=== PATIENT | male | born 1955 | race Caucasian/White ===

== ENCOUNTER 2017-12-30 18:48 | Emergency (ER) | payer OTHER ==
[~2017-12-30] VITALS: Ht 180.3 cm; Wt 85.7 kg
[~2017-12-30 18:48] MED LIST: FLUT9.9S NS; GUAI120L35 PO; HYDR-971 PO; IBUP800T19 PO
[2017-12-30 19:20] VITALS: BP 62/81
[2017-12-30] MEDS ORDERED: CEPH-264 PO (19:34)
--- NOTE | 2017-12-30 23:11 | ED.ADGEN ---
Past History Past Medical History: No Pertinent History Past Surgical History: No Surgical History Alcohol Use: None Drug Use: None Adult General HPI HPI Patient is a 62 year old male who presents with possible spider bite. Patient states he was cleaning out a shed one week earlier. Following this, he noticed a very small red pustule on the forearm on the left on the volar surface. Since then, he has had worsening irritation at the site. Over the last 24-48 hours she developed some erythema extending circumferentially from the site. He also states there was some drainage at the location. He has otherwise felt at baseline health. He has had no fever or chills. He has been using antifungal cream on the area but this has not been improving the symptoms Review of Systems Review of Systems Constitutional: Denies fever or chills Eyes: Denies change in visual acuity HENT: Denies nasal congestion GI: Denies abdominal pain, nausea, vomiting Musculoskeletal: Denies back pain or joint pain Integument: Denies rash or skin lesions Neurologic: Denies headache All other systems were reviewed and found to be within normal limits, except as documented in this note. Allergies Allergies Allergies Coded Allergies Type Severity Reaction Last Updated Verified Penicillins Allergy Intermediate rash 08/26/16 Yes Physical Exam Physical Exam Constitutional: Well developed, well nourished, no acute distress, non-toxic appearance. HENT: Normocephalic, atraumatic, bilateral external ears normal, oropharynx moist Eyes: EOMI, conjunctiva normal, no discharge. Skin: Warm, dry, no erythema, no rash. Extremities: There is about a 3 cm area of erythema over the volar surface of the mid left forearm. The area has erythematous raised borders with some central clearing and a Center pustule. There is no fluctuant abscess palpable. There is no local fever. Neurologic: Alert and oriented X 3, normal motor function, normal sensory function, no focal deficits noted. [] Psychologic: Affect normal, judgement normal, mood normal. [] Current Patient Data Vital Signs Vital Signs Date Time Temp Pulse Resp B/P (MAP) Pulse Ox O2 Delivery O2 Flow Rate FiO2 12/30/17 19:28 20 Room Air 12/30/17 19:20 97.7 57 97 EKG EKG [] Radiology/Procedures Radiology/Procedures [] Course & Med Decision Making Course & Med Decision Making Pertinent Labs and Imaging studies reviewed. (See chart for details) Patient is seen and examined in the emergency department for possible spider bite. The lesion on his forearm seems more consistent with tinea although it could also represent a healing brown recluse spider bite given it has an area of central clearing. There is erythema circumferentially around the lesion. The patient states the erythema is new. Because of this, he is placed on Keflex to prevent any additional infection. He is advised of the natural course of brown recluse bite. On chance that the lesion is in fact tinea, the patient is encouraged to continue to use the antifungal cream he has been using. Also advised to follow-up with his primary care doctor or return to the ER for any new or worsening symptoms. Final Impression Final Impression [] Dragon Disclaimer Dragon Disclaimer This electronic medical record was generated, in whole or in part, using a voice recognition dictation system. JN PRECSOTT DO Dec 30, 2017 23:11
== END 2017-12-30 19:49 | disposition home or self-care (01) ==
LOC: ER 18:48
DX: L98.8 Other specified disorders of the skin and subcutaneous tissue (principal); B35.9 Dermatophytosis, unspecified; Z88.0 Allergy status to penicillin
CPT/HCPCS: 99283